=== PATIENT | female | born 1985 | race Caucasian/White ===

== ENCOUNTER → 2022-01-31 | Day surgery (SDC) | payer OTHER ==
[~2022-01-31] VITALS: Ht 165.1 cm; Wt 74.4 kg
[~2022-01-31] MED LIST: APPLE CIDER VI500 MG PO; BIOTIN1000 MCG PO; ELAVIL25 MG PO; FOLIC ACID1 MG PO; IBUPROFEN800 M1 PO; MAXALT10 MG PO; PROBIOTIC 1 B1 EACH PO; SPRINTEC 28 DA1 EACH PO; TOPIRAMATE50 MG PO; VITAMIN B125000 MCG PO; VITAMIN D350 MCG PO
[2022-01-31 09:19] LABS: HCG (URINE) SCREEN NEGATIVE (NEGATIVE)
== END | disposition home or self-care (01) ==
LOC: FAS 08:59
PROVIDERS: Obstetrics & Gynecology
DX: D25.9 Leiomyoma of uterus, unspecified (principal); M19.90 Unspecified osteoarthritis, unspecified site
CPT/HCPCS: 84703; J1100; J1170; J1885; J2250; J2405; J2550; J2704; J3010; J7120